=== PATIENT | male | born 1970 | race Caucasian/White ===

== ENCOUNTER 2023-04-19 10:06 | Emergency (ER) | payer OTHER, SELFPAY ==
--- NOTE | ~2023-04-19 | XR_ITS ---
XR shoulder RT min 2V DATE: 04/19/2023 10:26 INDICATION: Injury, pain of right shoulder TECHNIQUE: 4 views COMPARISON: None FINDINGS: No fracture or dislocation, periosteal reaction or bone destruction or abnormal soft tissue calcification of the right shoulder. IMPRESSION: Negative Reviewed, dictated and finalized at location A. IMPRESSION: Negative
--- NOTE | ~2023-04-19 | XR_ITS ---
XR tibia fibula RT 2V DATE: 04/19/2023 10:26 INDICATION: Injury, abrasions TECHNIQUE: AP and lateral views of right lower leg COMPARISON: None FINDINGS: Very prominent posterior calcaneal enthesopathy. Minimal plantar calcaneal enthesopathy. There is subcutaneous emphysema along the medial lower leg. No radiopaque soft tissue foreign body is detected. No fracture or dislocation, periosteal reaction or bone destruction of the tibia or fibula is detecte d. Small osteochondroma of the very proximal medial aspect of the fibular shaft. IMPRESSION: Subcutaneous emphysema of medial lower leg; no radiopaque foreign body, fracture or dislo cation Reviewed, dictated and finalized at location A. IMPRESSION: Subcutaneous emphysema of medial lower leg; no radiopaque foreign b [place], fracture or dislocation
[2023-04-19 10:32] VITALS: BP 133/95; PULSE 90; RESP 18; TEMP 36.6; O2SAT 95
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
[2023-04-19] MEDS: TETANUS,DIPHTHERIA,AC PERTUSSIS ADULT (0.5 ML) BOOSTRIX IM (11:53)
[2023-04-19] MEDS: ACETAMINOPHEN 500 MG TABLET 1000 MG PO (11:57)
[2023-04-19] MEDS: IBUPROFEN 400 MG TABLET 800 MG PO (11:58)
[2023-04-19 12:00] VITALS: PULSE 83; RESP 18; O2SAT 97
[2023-04-19 12:25] VITALS: PULSE 78; RESP 16; O2SAT 98
== END 2023-04-19 12:27 | disposition home or self-care (01) ==
PROVIDERS: Emergency Provider Physician Assistant; PCP Family Medicine
DX: S43.401A Unspecified sprain of right shoulder joint, initial encounter (principal); S93.401A Sprain of unspecified ligament of right ankle, initial encounter; S90.511A Abrasion, right ankle, initial encounter; S81.831A Puncture wound without foreign body, right lower leg, initial encounter; V89.0XXA Person injured in unspecified motor-vehicle accident, nontraffic, initial encounter; Z23 Encounter for immunization
CPT/HCPCS: 73030; 73590; 90471; 90715; 99283; A9270